=== PATIENT | female | born 1960 | race Caucasian/White ===

== ENCOUNTER 2017-01-29 23:11 | Emergency (ER) | payer BC ==
[2017-01-29 23:45] VITALS: BP 139/73
[2017-01-30 00:32] LABS: CHLORIDE,CL 106 mmol/L (101-111); SODIUM,NA 142 mmol/L (135-145)
--- NOTE | 2017-01-30 00:42 | EDM.PDOC ---
ED HPI GENERAL MEDICAL PROBLEM - General Chief Complaint: Chest Pain Stated Complaint: CHEST PAIN Time Seen by Provider: 01/29/17 23:30 Source of Information: Reports: Patient History Limitations: Reports: No Limitations - History of Present Illness INITIAL COMMENTS - FREE TEXT/NARRATIVE: ED with c/o right sided chest pain after moving large rug this morning, worse with movement or deep breath. No nausea or sweating. Onset: Today Location: Reports: Chest Quality: Reports: Ache Severity: Mild Chest Pain Score (Numeric/FACES): 7 - Related Data Allergies Allergy/AdvReac Type Severity Reaction Status Date / Time acetaminophen Allergy Nausea and Verified 01/30/17 00:40 [From Lorcet 10/650] Vomiting amoxicillin trihydrate Allergy Cannot Verified 01/30/17 00:40 [From Augmentin] Remember aspirin Allergy Cannot Verified 01/30/17 00:40 Remember buprenorphine HCl Allergy Cannot Verified 01/30/17 00:40 [From Buprenex] Remember erythromycin lactobionate Allergy Cannot Verified 01/30/17 00:40 [From Erythrocin] Remember hydrocodone bitartrate Allergy Nausea and Verified 01/30/17 00:40 [From Lorcet 10/650] Vomiting ibuprofen [From Motrin IB] Allergy Cannot Verified 01/30/17 00:40 Remember lomefloxacin HCl Allergy Cannot Verified 01/30/17 00:40 [From Maxaquin] Remember meperidine HCl [From Demerol] Allergy Nausea and Verified 01/30/17 00:40 Vomiting Opioids-Meperidine and Allergy Nausea and Verified 01/30/17 00:40 Related Vomiting [Opioids-Meperidine & Related] potassium clavulanate Allergy Cannot Verified 01/30/17 00:40 [From Augmentin] Remember propoxyphene napsylate Allergy Nausea and Verified 01/30/17 00:40 [From Darvocet-N 100] Vomiting Sulfa (Sulfonamide Allergy Cannot Verified 01/30/17 00:40 Antibiotics) Remember Home Meds: Home Meds Esomeprazole Magnesium [Nexium] 1 cap PO DAILY 10/18/13 [History] Levothyroxine Sodium [Synthroid] 1 tab PO DAILY 10/18/13 [History] Rosuvastatin [Crestor] 1 tab PO DAILY 03/19/14 [History] buPROPion [Wellbutrin] 2 tab PO DAILY 03/19/14 [History] Past Medical History [employer] History: Reports: Other (See Below) Other OB/BYN History: Hysterectomy Endocrine/Metabolic History: Reports: Hypothyroidism - Past Surgical History GI Surgical History: Reports: Cholecystectomy Social & Family History - Tobacco Use Smoking Status *Q: Current Every Day Smoker Years of Tobacco use: 37 Packs/Tins Daily: 10 Used Tobacco, but Quit: Yes Month Tobacco Last Used: january 2014 - Caffeine Use Caffeine Use: Reports: Coffee, Soda, Tea - Alcohol Use Days Per Week of Alcohol Use: 0 Date of Last Drink: 01/25/17 - Recreational Drug Use Recreational Drug Use: No ED ROS GENERAL - Review of Systems Review Of Systems: See Below Constitutional: Reports: No Symptoms HEENT: Reports: No Symptoms Respiratory: Reports: No Symptoms. Denies: Shortness of Breath, Cough Cardiovascular: Reports: Chest Pain. Denies: Blood Pressure Problem, Dyspnea on Exertion, Edema GI/Abdominal: Reports: No Symptoms Skin: Reports: No Symptoms Neurological: Reports: No Symptoms Psychiatric: Reports: Anxiety ED EXAM, GENERAL - Physical Exam Exam: See Below Exam Limited By: No Limitations General Appearance: Alert, No Apparent Distress, Anxious Eye Exam: Bilateral Eye: EOMI, PERRL Ears: Normal External Exam Nose: Normal Inspection Throat/Mouth: Normal Inspection Head: Atraumatic, Normocephalic Neck: Normal Inspection Respiratory/Chest: No Respiratory Distress, Lungs Clear, Normal Breath Sounds, Other (right mid chest pain mild tenderness with palpation and movement , repositioning) Cardiovascular: Normal Peripheral Pulses, Regular Rate, Rhythm, No Edema GI/Abdominal: Normal Bowel Sounds, Soft Extremities: Normal Inspection Neurological: Alert, Oriented Psychiatric: Normal Affect, Anxious Skin Exam: Warm, Dry, Intact, Normal Color Course - Vital Signs Last Recorded V/S: Last Vital Signs Temp 97.2 F 01/29/17 23:25 Pulse 80 01/29/17 23:25 Resp 16 01/29/17 23:25 BP 139/73 01/29/17 23:25 Pulse Ox 98 01/29/17 23:25 - Orders/Labs/Meds Labs: Laboratory Tests 01/30/17 01/30/17 Range/Units 00:08 00:08 WBC 7.3 (5.0-10.0) 10^3/uL RBC 4.09 L (4.2-5.4) 10^6/uL Hgb 12.6 (12.0-16.0) g/dL Hct 38.3 (37.0-47.0) % MCV 93.6 (80-100) fL MCH 30.8 (27.0-34.0) pg MCHC 32.9 L (33.0-35.0) g/dL Plt Count 193 (150-450) 10^3/uL Neut % (Auto) 54.9 (42.2-75.2) % Lymph % (Auto) 33.6 (20.5-50.1) % [place] % (Auto) 9.2 H (2-8) % Eos % (Auto) 1.9 (1.0-3.0) % Baso % (Auto) 0.4 (0.0-1.0) % Sodium 142 (135-145) mmol/L Potassium 3.8 (3.6-5.0) mmol/L Chloride 106 (101-111) mmol/L Carbon Dioxide 27.0 (21.0-31.0) mmol/L Anion Gap 12.8 BUN 12 (7-18) mg/dL Creatinine 0.6 (0.6-1.3) mg/dL Est Cr Clr Drug Dosing TNP Estimated GFR (MDRD) > 60 BUN/Creatinine Ratio 20.00 Glucose 110 H (74-105) mg/dL Calcium 9.1 (8.4-10.2) mg/dl Total Bilirubin 0.3 (0.2-1.0) mg/dL AST 23 (10-42) IU/L ALT 38 (10-60) IU/L Alkaline Phosphatase 57 (42-121) IU/L Troponin I < 0.02 (0.00-0.02) ng/ml Total Protein 6.5 L (6.7-8.2) g/dl Albumin 3.8 (3.2-5.5) g/dl Globulin 2.7 Albumin/Globulin Ratio 1.41 Departure - Departure Time of Disposition: 00:39 Disposition: Home, Self-Care 01 Condition: Good Clinical Impression: Muscle strain of anterior chest wall Instructions: Muscle Strain Forms: ED Department Discharge Additional Instructions: remi alternate heat and ice to upper chest tylenol per package directions for discomfort follow up if difficulty breathing, sweating, or fever.
--- NOTE | 2017-02-02 13:01 | EKG ---
01/29/2017 - MICHELL MORSE 12-lead EKG shows normal sinus rhythm with heart rate of 80. Atrial premature complexes noted. No significant ST elevation or ST depression noted. [facility] /[id number]
== END 2017-01-30 00:48 | disposition home or self-care (01) ==
LOC: DL.ED 23:11
DX: S29.011A Strain of muscle and tendon of front wall of thorax, initial encounter (principal); E03.9 Hypothyroidism, unspecified; F17.210 Nicotine dependence, cigarettes, uncomplicated; Z88.1 Allergy status to other antibiotic agents; Z88.8 Allergy status to other drugs, medicaments and biological substances; Z88.2 Allergy status to sulfonamides; Z79.899 Other long term (current) drug therapy; Z90.49 Acquired absence of other specified parts of digestive tract; Z90.710 Acquired absence of both cervix and uterus; X58.XXXA Exposure to other specified factors, initial encounter
CPT/HCPCS: 36415; 80053; 84484; 85025; 99284